=== PATIENT | female | born 1935 | race African-American/Black ===

== ENCOUNTER 2018-04-19 11:17 | Emergency (ER) | payer MEDICARE, MEDICAID ==
[~2018-04-19] VITALS: Ht 160 cm; Wt 79.8 kg
[~2018-04-19 11:17] MED LIST: AMLO1TAB14; ASPI-785; CYCL30DR OP; CYCL5TAB PO; DOCU50CA3; FOLI-43; HYDR30CR80; IBUPROFEN; LIP40; NIAC500T76; NITR25PO2; OMEP20CA10; PENI500T; SULF1TAB48 PO; TRIA15CR61 TP; rena vite PO
[2018-04-19] MEDS ORDERED: SODIUM CHLORIDE 0.9% 1,000 ML IV ONE (11:41)
[2018-04-19] MEDS ORDERED: KETOROLAC 15MG/ML VIAL IV ONE (11:45)
[2018-04-19 12:01] LABS: BASOPHILS % 0.3 % (0.0-2.0); EOSINOPHILS % 0.6 % (0.0-5.0); HEMATOCRIT. 40.7 % (36.0-48.0); HEMOGLOBIN. 13.2 g/dL (12.0-16.0); LYMPHOCYTES % 51.7 % (20.0-50.0); MEAN CORPUSCULAR HEMOGLOBIN 28.6 pg (28.0-32.0); MEAN PLATELET VOLUME 8.2 fl (7.4-10.4); MONOCYTES % 7.1 % (2.0-8.0); NEUTROPHILS % 40.3 % (40.0-76.0); PLATELET 193 x1000/uL (130-400); RED BLOOD CELL COUNT 4.63 mill/uL (4.2-5.4); RED CELL DISTRIBUTION WIDTH 14.1 % (11.6-14.6)
[2018-04-19 12:07] LABS: CHLORIDE 108 mEq/L (98-107)
[2018-04-19 12:08] LABS: PROTHROMBIN TIME 10.9 sec (9.4-11.6)
[2018-04-19 12:56] LABS: CLARITY URINE TURBID (CLEAR); COLOR URINE YELLOW (YELLOW); KETONES URINE NEGATIVE (NEGATIVE); LEUKOCYTE ESTERASE URINE 3+ (NEGATIVE); NITRITE URINE NEGATIVE (NEGATIVE); OCCULT BLOOD URINE TRACE (NEGATIVE); PH URINE 6.5 (4.5-8.0); PROTEIN URINE NEGATIVE (NEGATIVE); SPECIFIC GRAVITY URINE 1.013 (1.005-1.030)
[2018-04-19] MEDS ORDERED: CEFTRIAXONE 1 G PREMIX 50 ML IV NR (15:00)
[2018-04-19 16:44] VITALS: BP 148/61
== END 2018-04-19 16:50 | disposition home or self-care (01) ==
LOC: ER 13:59
DX: R20.2 Paresthesia of skin (principal); N39.0 Urinary tract infection, site not specified; E86.0 Dehydration; R79.89 Other specified abnormal findings of blood chemistry; I10 Essential (primary) hypertension; Z90.89 Acquired absence of other organs; Z79.82 Long term (current) use of aspirin; Z88.8 Allergy status to other drugs, medicaments and biological substances; Z88.6 Allergy status to analgesic agent; Z88.5 Allergy status to narcotic agent
CPT/HCPCS: 36415; 71045; 80053; 81003; 83735; 84484; 85025; 85610; 87086; 96361; 96365; 96375; 99285; J0696; J1885; J7030

== ENCOUNTER 2018-07-26 13:08 | Emergency (ER) | payer MEDICARE, MEDICAID ==
[~2018-07-26] VITALS: Ht 160 cm; Wt 79.5 kg
[2018-07-26 17:54] LABS: CLARITY URINE CLOUDY (CLEAR); COLOR URINE YELLOW (YELLOW); KETONES URINE NEGATIVE (NEGATIVE); LEUKOCYTE ESTERASE URINE 3+ (NEGATIVE); NITRITE URINE NEGATIVE (NEGATIVE); OCCULT BLOOD URINE NEGATIVE (NEGATIVE); PROTEIN URINE NEGATIVE (NEGATIVE); SPECIFIC GRAVITY URINE 1.016 (1.005-1.030); UROBILINOGEN URINE 0.2 E.U./dL (0.2-1.0)
[2018-07-26 17:58] LABS: BASOPHILS % 0.9 % (0.0-2.0); HEMATOCRIT. 42.3 % (36.0-48.0); HEMOGLOBIN. 13.6 g/dL (12.0-16.0); LYMPHOCYTES % 46.9 % (20.0-50.0); MEAN CORPUSCULAR HEMOGLOBIN 28.2 pg (28.0-32.0); MEAN CORPUSCULAR VOLUME 88.1 fL (81.0-99.0); MEAN PLATELET VOLUME 9.5 fl (7.4-10.4); MONOCYTES % 7.1 % (2.0-8.0); NEUTROPHILS % 44.1 % (40.0-76.0); PLATELET 182 x1000/uL (130-400); RED BLOOD CELL COUNT 4.81 mill/uL (4.2-5.4)
[2018-07-26 17:59] LABS: CHLORIDE 106 mEq/L (98-107)
[2018-07-26 18:44] VITALS: BP 178/81
[2018-07-26 19:21] LABS: PLATELET ESTIMATE NORMAL
== END 2018-07-26 18:49 | disposition home or self-care (01) ==
LOC: ER 13:08
DX: N39.0 Urinary tract infection, site not specified (principal); I10 Essential (primary) hypertension; Z90.49 Acquired absence of other specified parts of digestive tract; Z79.82 Long term (current) use of aspirin; Z79.899 Other long term (current) drug therapy; Z88.1 Allergy status to other antibiotic agents; Z88.6 Allergy status to analgesic agent
CPT/HCPCS: 36415; 71045; 80053; 81003; 85025; 93005; 99285

== ENCOUNTER 2020-04-05 18:53 | Inpatient (IN) | payer MEDICARE, MEDICAID ==
[~2020-04-05] VITALS: Ht 160 cm; Wt 80.9 kg
[~2020-04-05 18:53] MED LIST changes: -OMEP20CA10; +OMEP20CA14
[2020-04-05 22:15] LABS: BASOPHILS % 0.4 % (0.0-2.0); EOSINOPHILS % 0.2 % (0.0-5.0); HEMATOCRIT. 40.8 % (36.0-48.0); HEMOGLOBIN. 13.5 g/dL (12.0-16.0); MEAN CORPUSCULAR HEMOGLOBIN 29.3 pg (28.0-32.0); MEAN CORPUSCULAR VOLUME 88.8 fL (81.0-99.0); MEAN PLATELET VOLUME 8.4 fl (7.4-10.4); MONOCYTES % 8.7 % (2.0-8.0); NEUTROPHILS % 58.7 % (40.0-76.0); PLATELET 163 x1000/uL (130-400); RED CELL DISTRIBUTION WIDTH 16.1 % (11.6-14.6)
[2020-04-05 22:32] LABS: CHLORIDE 107 mEq/L (98-107)
[2020-04-05] MEDS ORDERED: ENOXAPARIN 100MG/ML SYR SUBCUT ONE (23:15)
[2020-04-05] MEDS ORDERED: ASPIRIN 81MG TABLET PO ONE (23:15)
[2020-04-06] VITALS (8 sets, daily range): BP systolic 104–164; BP diastolic 59–91
[2020-04-06] MEDS ORDERED: CLONIDINE 0.1MG TABLET PO PRN (08:30)
[2020-04-06] MEDS ORDERED: ONDANSETRON HCL 4MG/2ML INJ IV PRN (08:30)
[2020-04-06] MEDS ORDERED: ENOXAPARIN 40MG/0.4ML SYR SUBCUT SCH (08:30)
[2020-04-06] MEDS ORDERED: IPRATROPIUM/ALBUTEROL 0.5-3(2.5)MG/3ML NEB HHN PRN (08:30)
[2020-04-06 09:00] LABS: CLARITY URINE TURBID (CLEAR); COLOR URINE YELLOW (YELLOW); KETONES URINE NEGATIVE (NEGATIVE); LEUKOCYTE ESTERASE URINE 3+ (NEGATIVE); NITRITE URINE NEGATIVE (NEGATIVE); OCCULT BLOOD URINE TRACE (NEGATIVE); PH URINE 5.5 (4.5-8.0); PROTEIN URINE 1+ (NEGATIVE); SPECIFIC GRAVITY URINE 1.013 (1.005-1.030); UROBILINOGEN URINE 0.2 E.U./dL (0.2-1.0)
[2020-04-06 09:11] LABS: *AMPHETAMINES SCREEN URINE NEGATIVE (NEGATIVE); *BARBITURATES SCREEN URINE NEGATIVE (NEGATIVE)
[2020-04-06 09:12] LABS: *BENZODIAZEPINES SCREEN URINE NEGATIVE (NEGATIVE); *COCAINE SCREEN URINE NEGATIVE (NEGATIVE); CANNABINOID URINE SCREEN NEGATIVE (NEGATIVE); METHADONE URINE SCREEN NEGATIVE (NEGATIVE); OPIATES URINE SCREEN NEGATIVE (NEGATIVE); PHENCYCLIDINE URINE SCREEN NEGATIVE (NEGATIVE)
[2020-04-06] MEDS ORDERED: NICARDIPINE 100MCG/ML 10ML VIAL (CATH LAB) IV ONE (09:52)
[2020-04-06] MEDS ORDERED: HEPARIN SODIUM 1,000 UNIT/1ML VIAL IV ONE (09:52)
[2020-04-06] MEDS ORDERED: NITROGLYCERIN 50MCG/ML 10ML VIAL (CATH LAB) IV ONE (09:52)
[2020-04-06 10:24] LABS: PHOSPHORUS 3.1 mg/dL (2.5-4.9)
[2020-04-06] MEDS: NITROGLYCERIN OINT 1GM/INCH UDPKT TD SCH ×3 (10:55→21:58)
[2020-04-06] MEDS: AMLODIPINE 5MG TABLET PO SCH ×2 (10:55→21:59)
[2020-04-06] MEDS: SODIUM CHLORIDE 0.45% 1,000 ML IV SCH (11:00)
[2020-04-06] MEDS ORDERED: MIDAZOLAM HCL 2 MG/2 ML VIAL ONE (13:21)
[2020-04-06] MEDS ORDERED: FENTANYL CITRATE/PF 50MCG/ML 2ML VIAL ONE (13:21)
[2020-04-06] MEDS ORDERED: LIDOCAINE HCL 1% 20ML VIAL (Pyxis) INJ ONE (13:21)
[2020-04-06] MEDS ORDERED: IODIXANOL 320MG/ML 100 ML BOTTLE IV ONE (13:22)
[2020-04-06] MEDS ORDERED: ATROPINE SULFATE 1MG/10ML SYR IV PRN (14:30)
[2020-04-06] MEDS ORDERED: CLONIDINE 0.1MG TABLET PO SCH (16:00)
[2020-04-06] MEDS: CLONIDINE 0.1MG TABLET PO SCH ×2 (17:07→22:00)
[2020-04-06] MEDS: CEFTRIAXONE 1 G PREMIX 50 ML IV SCH (17:07)
[2020-04-06] MEDS ORDERED: ENOXAPARIN 80MG/0.8ML SYR SUBCUT SCH (21:00)
[2020-04-06] MEDS ORDERED: ATORVASTATIN CALCIUM 40MG TABLET PO SCH (21:00)
[2020-04-06] MEDS ORDERED: ENOXAPARIN 30MG/0.3ML SYR SUBCUT SCH (21:00)
[2020-04-07] VITALS (10 sets, daily range): BP systolic 92–115; BP diastolic 51–74
[2020-04-07] MEDS: SODIUM CHLORIDE 0.45% 1,000 ML IV SCH ×2 (00:30→12:28)
[2020-04-07] MEDS: NITROGLYCERIN OINT 1GM/INCH UDPKT TD SCH ×2 (06:15→15:53)
[2020-04-07] MEDS: CLONIDINE 0.1MG TABLET PO SCH ×2 (06:15→14:00)
[2020-04-07] MEDS: AMLODIPINE 5MG TABLET PO SCH (09:00)
[2020-04-07 10:24] LABS: BASOPHILS % 0.8 % (0.0-2.0); EOSINOPHILS % 0.8 % (0.0-5.0); HEMATOCRIT. 33.4 % (36.0-48.0); HEMOGLOBIN. 11.3 g/dL (12.0-16.0); LYMPHOCYTES % 31.3 % (20.0-50.0); MEAN CORPUSCULAR HEMOGLOBIN 29.6 pg (28.0-32.0); MEAN CORPUSCULAR VOLUME 87.9 fL (81.0-99.0); MEAN PLATELET VOLUME 8.3 fl (7.4-10.4); MONOCYTES % 8.6 % (2.0-8.0); NEUTROPHILS % 58.5 % (40.0-76.0); PLATELET 146 x1000/uL (130-400); RED CELL DISTRIBUTION WIDTH 15.4 % (11.6-14.6)
[2020-04-07 10:32] LABS: INR 1.1; PROTHROMBIN TIME 11.3 sec (9.6-11.0)
[2020-04-07] MEDS: APIXABAN 2.5 MG TABLET PO SCH ×2 (10:32→17:00)
[2020-04-07] MEDS: DOCUSATE SODIUM 100MG CAPSULE PO SCH ×2 (10:32→15:54)
[2020-04-07] MEDS: ACETAMINOPHEN 325MG TABLET PO PRN ×2 (10:32→15:54)
[2020-04-07 10:35] LABS: CHLORIDE 107 mEq/L (98-107)
[2020-04-07 10:44] LABS: LDL CHOLESTEROL 94 mg/dL (5-100)
[2020-04-07 10:45] LABS: HDL CHOLESTEROL 37 mg/dL (40-59)
[2020-04-07] MEDS ORDERED: AMLO5TAB88 PO (13:05)
[2020-04-07] MEDS ORDERED: APIX2.5T PO (13:05)
[2020-04-07] MEDS ORDERED: ISOS30TA6 MT (13:05)
[2020-04-07] MEDS ORDERED: GABAPENTIN 100MG CAPSULE PO SCH (14:00)
[2020-04-07] MEDS: CEFTRIAXONE 1 G PREMIX 50 ML IV SCH (15:56)
== END 2020-04-07 17:05 | disposition home or self-care (01) | DRG 281 ==
LOC: ER 18:53 → 3WST 04-06 00:10 → ENRESERV 04-06 02:58
PROVIDERS: ADMIT Internal Medicine; ATTEND Internal Medicine
PROC: 4A023N7 Measurement of Cardiac Sampling and Pressure, Left Heart, Percutaneous Approach (ICD-10-PCS; principal; 2020-04-06)
PROC: B2111ZZ Fluoroscopy of Multiple Coronary Arteries using Low Osmolar Contrast (ICD-10-PCS; 2020-04-06)
PROC: B2151ZZ Fluoroscopy of Left Heart using Low Osmolar Contrast (ICD-10-PCS; 2020-04-06)
DX: I21.4 Non-ST elevation (NSTEMI) myocardial infarction (principal); N39.0 Urinary tract infection, site not specified; I48.92 Unspecified atrial flutter; I82.412 Acute embolism and thrombosis of left femoral vein; I25.110 Atherosclerotic heart disease of native coronary artery with unstable angina pectoris; I11.9 Hypertensive heart disease without heart failure; E78.5 Hyperlipidemia, unspecified; Z88.5 Allergy status to narcotic agent; Z88.8 Allergy status to other drugs, medicaments and biological substances; Z88.6 Allergy status to analgesic agent; Z79.82 Long term (current) use of aspirin; Z79.899 Other long term (current) drug therapy; Z90.49 Acquired absence of other specified parts of digestive tract
CPT/HCPCS: 36415; 71045; 80053; 80061; 80305; 81003; 82962; 83735; 83880; 84100; 84443; 84484; 85025; 93005; 93306; 93458; 93970; 99291; C1769; C1893; J0696; J1644; J1650; J2250; J2405; J3010; J3490; Q9967

== ENCOUNTER 2021-08-13 12:25 | Inpatient (IN) | payer MEDICARE, MEDICAID ==
[~2021-08-13] VITALS: Ht 165.1 cm; Wt 72.6 kg
[~2021-08-13 12:25] MED LIST changes: +ALBU6.7H9 INH; -AMLO1TAB14; +AMLO5TAB88 PO; +APIX5TAB PO; +ASPI-1497 PO; -ASPI-785; +ATOR40TA70 PO; -CYCL5TAB PO; +DOCU-150 PO; -DOCU50CA3; +FERR325T6 PO; +FLUT1DIS3 INH; -FOLI-43; +FOLI-43 PO; +FURO20TA4 PO; +GABA-529 PO; -HYDR30CR80; -IBUPROFEN; -LIP40; +NIAC500C8 PO; -NIAC500T76; -NITR25PO2; -OMEP20CA14; +OMEP20CA14 PO; +OXYC-582 PO; -PENI500T; +POTA8TAB4 PO; -SULF1TAB48 PO; -TRIA15CR61 TP; -rena vite PO
[2021-08-13] MEDS ORDERED: ONDANSETRON HCL 4MG/2ML INJ IV STA (13:05)
[2021-08-13] MEDS ORDERED: FUROSEMIDE 40MG/4ML VIAL IV ONE (13:15)
[2021-08-13] MEDS ORDERED: ASPIRIN 81MG TABLET PO ONE (13:15)
[2021-08-13] MEDS ORDERED: NITROGLYCERIN OINT 1GM/INCH UDPKT TD ONE (13:15)
[2021-08-13] MEDS ORDERED: IPRATROPIUM BROMIDE (0.02%) 0.5MG/2.5ML NEB HHN STA (13:49)
[2021-08-13] MEDS ORDERED: ALBUTEROL (0.083%) 2.5MG/3ML NEB HHN STA (13:49)
[2021-08-13 14:13] LABS: BASOPHILS % 0.4 % (0.0-2.0); CHLORIDE 107 mEq/L (98-107); EOSINOPHILS % 0.3 % (0.0-5.0); HEMATOCRIT. 23.8 % (36.0-48.0); HEMOGLOBIN. 7.4 g/dL (12.0-16.0); LYMPHOCYTES % 22.3 % (20.0-50.0); MEAN CORPUSCULAR HEMOGLOBIN 26.6 pg (28.0-32.0); MEAN PLATELET VOLUME 8.3 fl (7.4-10.4); PLATELET 337 x1000/uL (130-400); RED CELL DISTRIBUTION WIDTH 20.6 % (11.6-14.6)
[2021-08-13 14:21] LABS: INR 1.1; PROTHROMBIN TIME 12.2 sec (9.6-11.0)
[2021-08-13] MEDS ORDERED: ENOXAPARIN 80MG/0.8ML SYR SUBCUT ONE (15:00)
[2021-08-13] MEDS ORDERED: NITROGLYCERIN 50MG PREMIX 250 ML IV ONE (15:45)
[2021-08-13 17:23] LABS: TOTAL IRON BINDING CAPACITY 268 ug/dL (250-450)
[2021-08-13] MEDS: IPRATROPIUM/ALBUTEROL 0.5-3(2.5)MG/3ML NEB HHN PRN (22:15)
[2021-08-13] MEDS: TRAMADOL 50MG TABLET PO PRN (22:32)
[2021-08-14] VITALS (59 sets, daily range): BP systolic 118–163; BP diastolic 75–127
[2021-08-14 06:30] LABS: BASOPHILS % 0.3 % (0.0-2.0); EOSINOPHILS % 0.2 % (0.0-5.0); HEMATOCRIT. 21.4 % (36.0-48.0); LYMPHOCYTES % 22.2 % (20.0-50.0); MEAN CORPUSCULAR HEMOGLOBIN 26.8 pg (28.0-32.0); MEAN CORPUSCULAR VOLUME 83.9 fL (81.0-99.0); MEAN PLATELET VOLUME 8.2 fl (7.4-10.4); MONOCYTES % 8.2 % (2.0-8.0); NEUTROPHILS % 69.1 % (40.0-76.0); PLATELET 305 x1000/uL (130-400); RED BLOOD CELL COUNT 2.55 mill/uL (4.2-5.4); RED CELL DISTRIBUTION WIDTH 20.8 % (11.6-14.6)
[2021-08-14 06:54] LABS: PHOSPHORUS 5.9 mg/dL (2.5-4.9)
[2021-08-14] MEDS ORDERED: SODIUM POLYSTYRENE SULFONATE 15 G/60 ML BOT PO NR (08:15)
[2021-08-14 08:38] LABS: HEMOGLOBIN. 6.8 g/dL (12.0-16.0)
[2021-08-14] MEDS ORDERED: ENOXAPARIN 40MG/0.4ML SYR SUBCUT SCH (09:00)
[2021-08-14 09:51] LABS: BG BASE EXCESS -8.3 mmol/L (-2.0-2.0); BG CARBOXYHEMOGLOBIN 0.7 % (0.5-1.5); BG DEOXYHEMOGLOBIN 0.9 % (0.0-5.0); BG HCO3 ACT 16.1 mmol/L (22.0-26.0); BG METHEMOGLOBIN 0.3 % (0.0-1.5); BG OXYGEN SATURATION 99.1 % (92.0-98.5); BG OXYHEMOGLOBIN 98.1 % (94.0-97.0); BG PCO2 28.7 mmHg (35.0-45.0); BG PH 7.367 (7.350-7.450); BG PO2 153.5 mmHg (75.0-100.0); BG SAMPLE SITE RIGHT BRACHIAL; BG TOTAL HEMOGLOBIN 7.9 g/dL (12.0-18.0); BG VENT MODE NASAL CANNULA
[2021-08-14 11:10] LABS: CLARITY URINE CLEAR (CLEAR); COLOR URINE YELLOW (YELLOW); KETONES URINE NEGATIVE (NEGATIVE); LEUKOCYTE ESTERASE URINE NEGATIVE (NEGATIVE); NITRITE URINE NEGATIVE (NEGATIVE); OCCULT BLOOD URINE NEGATIVE (NEGATIVE); PH URINE 5.5 (4.5-8.0); PROTEIN URINE TRACE (NEGATIVE); UROBILINOGEN URINE 0.2 E.U./dL (0.2-1.0)
[2021-08-14 11:29] LABS: *BARBITURATES SCREEN URINE NEGATIVE (NEGATIVE); *BENZODIAZEPINES SCREEN URINE NEGATIVE (NEGATIVE); *COCAINE SCREEN URINE NEGATIVE (NEGATIVE)
[2021-08-14 11:30] LABS: *AMPHETAMINES SCREEN URINE NEGATIVE (NEGATIVE); CANNABINOID URINE SCREEN NEGATIVE (NEGATIVE); METHADONE URINE SCREEN NEGATIVE (NEGATIVE); OPIATES URINE SCREEN NEGATIVE (NEGATIVE)
[2021-08-14 11:31] LABS: PHENCYCLIDINE URINE SCREEN NEGATIVE (NEGATIVE)
[2021-08-14] MEDS: NITROGLYCERIN 50MG PREMIX 250 ML IV PRN ×2 (11:34→22:07)
[2021-08-14] MEDS ORDERED: FERR325T6 PO (12:09)
[2021-08-14] MEDS ORDERED: CARV3.1242 PO (12:09)
[2021-08-14] MEDS ORDERED: ASCO-339 PO (12:09)
[2021-08-14] MEDS ORDERED: MORPHINE SULFATE 2 MG/ML CPJ (NOT FOR IM USE) IV NR (13:30)
[2021-08-14] MEDS ORDERED: NALOXONE HCL 0.4MG/ML VIAL IV PRN (13:45)
[2021-08-14] MEDS: MORPHINE SULFATE 2 MG/ML CPJ (NOT FOR IM USE) IV PRN ×2 (17:50→21:58)
[2021-08-14 19:35] LABS: HEMOGLOBIN 7.9 g/dL (12.0-16.0)
[2021-08-14 19:43] LABS: INR 1.1; PROTHROMBIN TIME 11.9 sec (9.6-11.0)
[2021-08-14] MEDS: TRAMADOL 50MG TABLET PO PRN (20:49)
[2021-08-14] MEDS: ONDANSETRON HCL 4MG/2ML INJ IV PRN (20:49)
[2021-08-15] VITALS (93 sets, daily range): BP systolic 108–177; BP diastolic 64–123
[2021-08-15] MEDS: MORPHINE SULFATE 2 MG/ML CPJ (NOT FOR IM USE) IV PRN (02:44)
[2021-08-15 05:47] LABS: HEMATOCRIT. 24.4 % (36.0-48.0); MEAN CORPUSCULAR HEMOGLOBIN 27.6 pg (28.0-32.0); MEAN CORPUSCULAR VOLUME 84.5 fL (81.0-99.0); MEAN PLATELET VOLUME 7.9 fl (7.4-10.4); PLATELET 285 x1000/uL (130-400); RED BLOOD CELL COUNT 2.89 mill/uL (4.2-5.4); RED CELL DISTRIBUTION WIDTH 19.1 % (11.6-14.6)
[2021-08-15] MEDS: TRAMADOL 50MG TABLET PO PRN (06:12)
[2021-08-15 06:18] LABS: PHOSPHORUS 6.5 mg/dL (2.5-4.9)
[2021-08-15] MEDS: NITROGLYCERIN 50MG PREMIX 250 ML IV PRN ×3 (06:21→17:20)
[2021-08-15] MEDS ORDERED: NITROGLYCERIN 50MCG/ML 10ML VIAL (CATH LAB) IV ONE (08:40)
[2021-08-15] MEDS ORDERED: NICARDIPINE 100MCG/ML 10ML VIAL (CATH LAB) IV ONE (08:40)
[2021-08-15] MEDS ORDERED: HEPARIN SODIUM 1,000 UNIT/1ML VIAL IV ONE (08:40)
[2021-08-15] MEDS: ONDANSETRON HCL 4MG/2ML INJ IV PRN (09:36)
[2021-08-15] MEDS ORDERED: PNEUMOCOCCAL 23-VAL P-SAC VAC 0.5 ML IM ONE (10:00)
[2021-08-15 12:44] LABS: BG BASE EXCESS -5.1 mmol/L (-2.0-2.0); BG CARBOXYHEMOGLOBIN 0.6 % (0.5-1.5); BG DEOXYHEMOGLOBIN 0.6 % (0.0-5.0); BG FRACTION INSPIRED OXYGEN 28; BG HCO3 ACT 19.1 mmol/L (22.0-26.0); BG METHEMOGLOBIN 0.7 % (0.0-1.5); BG OXYGEN SATURATION 99.4 % (92.0-98.5); BG OXYHEMOGLOBIN 98.1 % (94.0-97.0); BG PCO2 32.2 mmHg (35.0-45.0); BG PH 7.392 (7.350-7.450); BG PO2 175.5 mmHg (75.0-100.0); BG SAMPLE SITE LEFT RADIAL; BG TOTAL HEMOGLOBIN 8.5 g/dL (12.0-18.0); BG VENT MODE NASAL CANNULA
[2021-08-15 12:49] LABS: HEPATITIS B SURFACE ANTIGEN NEGATIVE
[2021-08-15 13:24] LABS: PLATELET ESTIMATE NORMAL
[2021-08-15] MEDS ORDERED: IODIXANOL 320MG/ML 100 ML BOTTLE IV ONE (14:07)
[2021-08-15] MEDS ORDERED: LIDOCAINE HCL 1% 10 MG/ML 10ML VIAL ONE ×2 (14:07→14:46)
[2021-08-15] MEDS ORDERED: MIDAZOLAM HCL 2 MG/2 ML VIAL ONE (14:13)
[2021-08-15] MEDS ORDERED: FENTANYL CITRATE/PF 50MCG/ML 2ML VIAL ONE (14:13)
[2021-08-15] MEDS ORDERED: HEPARIN 1000 UNITS/ML 10ML ONE (14:14)
[2021-08-15] MEDS ORDERED: IOHEXOL-300 100 ML BOTTLE ONE (14:59)
[2021-08-15] MEDS ORDERED: EPTIFIBATIDE 2 MG/ML 10ML VIAL IV ONE (15:05)
[2021-08-15] MEDS ORDERED: TICAGRELOR 90 MG TABLET PO ONE (15:23)
[2021-08-15] MEDS ORDERED: ASPIRIN 325MG TABLET ONE (15:23)
[2021-08-15] MEDS ORDERED: ONDANSETRON HCL 4MG/2ML INJ IV PRN (15:45)
[2021-08-15] MEDS ORDERED: ACETAMINOPHEN 325MG TABLET PO PRN (15:45)
[2021-08-15] MEDS ORDERED: ATROPINE SULFATE 1MG/10ML SYR IV PRN (15:45)
[2021-08-15] MEDS ORDERED: FUROSEMIDE 40MG/4ML VIAL IVP NR (16:30)
[2021-08-15] MEDS: CAPTOPRIL 12.5MG TABLET PO SCH ×2 (17:32→22:02)
[2021-08-15] MEDS: CARVEDILOL 3.125 MG TABLET PO SCH (21:00)
[2021-08-15] MEDS: ATORVASTATIN CALCIUM 40MG TABLET PO SCH (21:00)
[2021-08-16] VITALS (111 sets, daily range): BP systolic 40–151; BP diastolic 19–106
[2021-08-16] MEDS: MORPHINE SULFATE 2 MG/ML CPJ (NOT FOR IM USE) IV PRN ×2 (02:15→09:27)
[2021-08-16] MEDS: CAPTOPRIL 12.5MG TABLET PO SCH ×3 (05:28→21:15)
[2021-08-16 06:06] LABS: PHOSPHORUS 5.8 mg/dL (2.5-4.9)
[2021-08-16 08:47] LABS: HEMATOCRIT. 29.7 % (36.0-48.0); MEAN CORPUSCULAR HEMOGLOBIN 27.7 pg (28.0-32.0); MEAN CORPUSCULAR VOLUME 82.6 fL (81.0-99.0); MEAN PLATELET VOLUME 8.2 fl (7.4-10.4); PLATELET 239 x1000/uL (130-400); RED CELL DISTRIBUTION WIDTH 17.4 % (11.6-14.6)
[2021-08-16 09:26] LABS: NUCLEATED RED BLOOD CELLS 1 /100 WBC; PLATELET ESTIMATE NORMAL
[2021-08-16 09:30] LABS: INR 1.1
[2021-08-16] MEDS: IPRATROPIUM/ALBUTEROL 0.5-3(2.5)MG/3ML NEB HHN PRN (09:42)
[2021-08-16] MEDS: CARVEDILOL 3.125 MG TABLET PO SCH ×2 (10:25→21:14)
[2021-08-16] MEDS: TICAGRELOR 90 MG TABLET PO SCH ×2 (10:25→16:32)
[2021-08-16] MEDS: ASPIRIN 81MG TABLET PO SCH (10:25)
[2021-08-16] MEDS: NITROGLYCERIN 50MG PREMIX 250 ML IV PRN (11:06)
[2021-08-16] MEDS ORDERED: NITROGLYCERIN 50MG PREMIX 250 ML IV SCH (12:45)
[2021-08-16] MEDS ORDERED: AMLODIPINE 2.5MG TABLET PO NR (13:52)
[2021-08-16] MEDS: ATORVASTATIN CALCIUM 40MG TABLET PO SCH (21:15)
[2021-08-17] VITALS (97 sets, daily range): BP systolic 81–283; BP diastolic 32–282
[2021-08-17] MEDS: MORPHINE SULFATE 2 MG/ML CPJ (NOT FOR IM USE) IV PRN ×3 (01:00→13:32)
[2021-08-17] MEDS: CAPTOPRIL 12.5MG TABLET PO SCH ×3 (05:45→22:00)
[2021-08-17 06:53] LABS: BASOPHILS % 0.1 % (0.0-2.0); HEMATOCRIT. 29.5 % (36.0-48.0); HEMOGLOBIN. 9.8 g/dL (12.0-16.0); MEAN CORPUSCULAR HEMOGLOBIN 27.8 pg (28.0-32.0); MEAN CORPUSCULAR VOLUME 83.4 fL (81.0-99.0); MEAN PLATELET VOLUME 8.9 fl (7.4-10.4); MONOCYTES % 9.3 % (2.0-8.0); NEUTROPHILS % 82.6 % (40.0-76.0); PLATELET 259 x1000/uL (130-400); RED BLOOD CELL COUNT 3.54 mill/uL (4.2-5.4); RED CELL DISTRIBUTION WIDTH 18.1 % (11.6-14.6)
[2021-08-17 07:02] LABS: PHOSPHORUS 4.4 mg/dL (2.5-4.9)
[2021-08-17] MEDS: NITROGLYCERIN OINT 1GM/INCH UDPKT TD SCH ×3 (08:55→17:38)
[2021-08-17] MEDS: CARVEDILOL 3.125 MG TABLET PO SCH ×2 (09:00→21:00)
[2021-08-17] MEDS ORDERED: AMLODIPINE 2.5MG TABLET PO SCH (09:00)
[2021-08-17] MEDS: TICAGRELOR 90 MG TABLET PO SCH ×2 (09:52→17:38)
[2021-08-17] MEDS: ASPIRIN 81MG TABLET PO SCH (09:52)
[2021-08-17] MEDS: PIPERACILLIN/TAZOBACTAM 3.375 G in DEXTROSE 5% WATER 50 ML IV SCH ×2 (10:38→22:28)
[2021-08-17 12:30] LABS: BG BASE EXCESS -1.8 mmol/L (-2.0-2.0); BG CARBOXYHEMOGLOBIN 0.3 % (0.5-1.5); BG DEOXYHEMOGLOBIN 0.9 % (0.0-5.0); BG FRACTION INSPIRED OXYGEN 28; BG HCO3 ACT 20.4 mmol/L (22.0-26.0); BG METHEMOGLOBIN 0.3 % (0.0-1.5); BG OXYGEN SATURATION 99.1 % (92.0-98.5); BG OXYHEMOGLOBIN 98.5 % (94.0-97.0); BG PCO2 26.6 mmHg (35.0-45.0); BG PH 7.503 (7.350-7.450); BG PO2 216.1 mmHg (75.0-100.0); BG SAMPLE SITE RIGHT RADIAL; BG TOTAL HEMOGLOBIN 10.2 g/dL (12.0-18.0); BG VENT MODE NASAL CANNULA
[2021-08-17] MEDS ORDERED: DEXTROSE 50% WATER 50ML SYRINGE IV ONE (15:35)
[2021-08-17] MEDS ORDERED: DEXTROSE 50% WATER 50ML SYRINGE IV PRN (16:15)
[2021-08-17] MEDS ORDERED: MORPHINE SULFATE 2 MG/ML CPJ (NOT FOR IM USE) IV PRN (17:00)
[2021-08-17] MEDS ORDERED: LORAZEPAM 0.5MG TABLET PO NR (17:15)
[2021-08-17] MEDS ORDERED: LORAZEPAM 2MG/ML CPJ IV NR (17:30)
[2021-08-17] MEDS ORDERED: LACTULOSE 20G/30ML UDC PO SCH (21:00)
[2021-08-17] MEDS: ATORVASTATIN CALCIUM 40MG TABLET PO SCH (21:00)
[2021-08-18] VITALS (7 sets, daily range): BP systolic 76–145; BP diastolic 45–112
[2021-08-18] MEDS: NITROGLYCERIN OINT 1GM/INCH UDPKT TD SCH ×2 (06:00)
[2021-08-18] MEDS: CAPTOPRIL 12.5MG TABLET PO SCH (06:00)
[2021-08-18] MEDS ORDERED: LORAZEPAM 2MG/ML CPJ IV SCH (07:00)
[2021-08-18 07:05] LABS: BASOPHILS % 0.1 % (0.0-2.0); EOSINOPHILS % 0.6 % (0.0-5.0); HEMATOCRIT. 29.4 % (36.0-48.0); HEMOGLOBIN. 9.7 g/dL (12.0-16.0); LYMPHOCYTES % 8.3 % (20.0-50.0); MEAN CORPUSCULAR VOLUME 84.5 fL (81.0-99.0); MEAN PLATELET VOLUME 8.9 fl (7.4-10.4); MONOCYTES % 7.6 % (2.0-8.0); NEUTROPHILS % 83.4 % (40.0-76.0); PLATELET 250 x1000/uL (130-400); RED BLOOD CELL COUNT 3.48 mill/uL (4.2-5.4); RED CELL DISTRIBUTION WIDTH 17.9 % (11.6-14.6)
[2021-08-18 07:08] LABS: PHOSPHORUS 4.4 mg/dL (2.5-4.9)
[2021-08-18] MEDS ORDERED: EPINEPHRINE 0.1MG/ML (1:10,000) 10ML SYR ONE (09:01)
[2021-08-18] MEDS ORDERED: ETOMIDATE 2MG/ML 10ML VIAL IV ONE (09:01)
[2021-08-18] MEDS ORDERED: DEXTROSE 50% WATER 50ML SYRINGE IV ONE (09:01)
[2021-08-18] MEDS ORDERED: SODIUM BICARBONATE 8.4% 1 MEQ/ML 50ML SYR IV ONE (09:01)
[2021-08-18] MEDS ORDERED: AMIODARONE HCL 50MG/ML 3ML VIAL IV ONE (09:01)
[2021-08-18] MEDS ORDERED: CALCIUM CHLORIDE 1GM/10ML SYR IV ONE (09:01)
[2021-08-18] MEDS ORDERED: SUCCINYLCHOLINE CHLORIDE 200MG/10ML IV ONE (09:01)
[2021-08-18] MEDS ORDERED: ATROPINE SULFATE 1MG/10ML SYR ONE (09:01)
== END 2021-08-18 16:30 | DRG 246 ==
LOC: EDBD 12:25 → ER 12:25 → EDBEDREQ 12:47 → MICUSO 15:16 → EDBEDREQ 15:25 → EDBEDREQSVC 15:25 → SUPCPDRO 15:55 → CVICU 08-14 13:06 → 5EST 08-17 21:30
PROVIDERS: ADMIT Internal Medicine; ATTEND Internal Medicine
PROC: 30233N1 Transfusion of Nonautologous Red Blood Cells into Peripheral Vein, Percutaneous Approach (ICD-10-PCS; 2021-08-14)
PROC: 02HV33Z Insertion of Infusion Device into Superior Vena Cava, Percutaneous Approach (ICD-10-PCS; principal; 2021-08-15)
PROC: 027035Z Dilation of Coronary Artery, One Artery with Two Drug-eluting Intraluminal Devices, Percutaneous Approach (ICD-10-PCS; 2021-08-15)
PROC: B548ZZA Ultrasonography of Superior Vena Cava, Guidance (ICD-10-PCS; 2021-08-15)
PROC: 4A023N7 Measurement of Cardiac Sampling and Pressure, Left Heart, Percutaneous Approach (ICD-10-PCS; 2021-08-15)
PROC: B2111ZZ Fluoroscopy of Multiple Coronary Arteries using Low Osmolar Contrast (ICD-10-PCS; 2021-08-15)
PROC: 5A1D70Z Performance of Urinary Filtration, Intermittent, Less than 6 Hours Per Day (ICD-10-PCS; 2021-08-15)
PROC: 5A1D70Z Performance of Urinary Filtration, Intermittent, Less than 6 Hours Per Day (ICD-10-PCS; 2021-08-16)
PROC: 5A1D70Z Performance of Urinary Filtration, Intermittent, Less than 6 Hours Per Day (ICD-10-PCS; 2021-08-17)
PROC: 5A12012 Performance of Cardiac Output, Single, Manual (ICD-10-PCS; 2021-08-18)
DX: I21.4 Non-ST elevation (NSTEMI) myocardial infarction (principal); J96.00 Acute respiratory failure, unspecified whether with hypoxia or hypercapnia; I50.43 Acute on chronic combined systolic (congestive) and diastolic (congestive) heart failure; J18.9 Pneumonia, unspecified organism; N17.9 Acute kidney failure, unspecified; N18.5 Chronic kidney disease, stage 5; G93.40 Encephalopathy, unspecified; I13.2 Hypertensive heart and chronic kidney disease with heart failure and with stage 5 chronic kidney disease, or end stage renal disease; J44.0 Chronic obstructive pulmonary disease with (acute) lower respiratory infection; E78.5 Hyperlipidemia, unspecified; D63.1 Anemia in chronic kidney disease; E16.2 Hypoglycemia, unspecified; E78.00 Pure hypercholesterolemia, unspecified; E87.5 Hyperkalemia; I25.10 Atherosclerotic heart disease of native coronary artery without angina pectoris; I27.20 Pulmonary hypertension, unspecified; I45.10 Unspecified right bundle-branch block; I46.9 Cardiac arrest, cause unspecified; I48.0 Paroxysmal atrial fibrillation; Z20.822 Contact with and (suspected) exposure to COVID-19; I08.1 Rheumatic disorders of both mitral and tricuspid valves; Z79.01 Long term (current) use of anticoagulants; Z79.02 Long term (current) use of antithrombotics/antiplatelets; Z79.82 Long term (current) use of aspirin; Z82.49 Family history of ischemic heart disease and other diseases of the circulatory system; Z87.891 Personal history of nicotine dependence; Z99.2 Dependence on renal dialysis; Z88.8 Allergy status to other drugs, medicaments and biological substances; Z79.899 Other long term (current) drug therapy; Z86.718 Personal history of other venous thrombosis and embolism; Z86.711 Personal history of pulmonary embolism
CPT/HCPCS: 36415; 36556; 36600; 71045; 76770; 76937; 78582; 80048; 80053; 80305; 81003; 82375; 82550; 82728; 82805; 82962; 83540; 83550; 83735; 83880; 84100; 84443; 84484; 85014; 85018; 85025; 85044; 85049; 85347; 85384; 86705; 86709; 86803; 86850; 86900; 86920; 87340; 87426; 92928; 93005; 93306; 93458; 93970; 94640; 99291; A9558; C1725; C1726; C1752; C1769; C1874; C1887; C1893; J0282; J0330; J0461; J1327; J1644; J1650; J1940; J2060; J2250; J2270; J2405; J2543; J3010; J3490; J7040; J7042; J7060; P9016; Q9967; J8499